=== PATIENT | female | born 1985 | race Caucasian/White ===

== ENCOUNTER 2018-04-20 16:23 | Emergency (ER) | payer BC ==
[2018-04-20 17:04] VITALS: BP 133/75
--- NOTE | 2018-04-20 17:20 | ED ---
Throat Pain/Nasal Congestion - HPI Summary HPI Summary: 32 yr old female with three days of left ear pain. She states she has had ear infections in the past and she requests Augmentin. No other complaints. No fever, chills. No other complaints. - History of Current Complaint Chief Complaint: UCEar Time Seen by Provider: 04/20/18 17:12 - Allergies/Home Medications Allergies/Adverse Reactions: Allergies Allergy/AdvReac Type Severity Reaction Status Date / Time seasonal Allergy Congestion Uncoded 04/20/18 17:07 Home Medications: Home Medications Naproxen [Naproxen 250 mg tab] 220 mg PO BID PRN 04/20/18 [History Confirmed ] PMH/Surg Hx/FS Hx/Imm Hx Endocrine/Hematology History: Reports: Hx Diabetes - pre Respiratory History: Reports: Hx Asthma - Surgical History Surgery Procedure, Year, and Place: D and C 11/2014 Infectious Disease History: No Infectious Disease History: Denies: Traveled Outside the [place] in Last 30 Days - Family History Known Family History: Positive: None - Social History Occupation: Employed Full-time Lives: With Family Alcohol Use: Rare Substance Use Type: Reports: None Smoking Status (MU): Never Smoked Tobacco Review of Systems Constitutional: Negative Positive: Ear Ache All Other Systems Reviewed And Are Negative: Yes Physical Exam Triage Information Reviewed: Yes Vital Signs On Initial Exam: Initial Vitals Temp Pulse Resp BP Pulse Ox 97.6 F 83 20 133/75 100 04/20/18 16:58 04/20/18 16:58 04/20/18 16:58 04/20/18 16:58 04/20/18 16:58 Vital Signs Reviewed: Yes Appearance: Positive: Well-Appearing, No Pain Distress Skin: Positive: Warm, Skin Color Reflects Adequate Perfusion Head/Face: Positive: Normal Head/Face Inspection Eyes: Positive: EOMI ENT: Positive: Pharynx normal, TM red - left. Negative: Sinus tenderness Neck: Positive: Supple, Nontender Respiratory/Lung Sounds: Positive: Clear to Auscultation, Breath Sounds Present Cardiovascular: Positive: RRR. Negative: Murmur Abdomen Description: Positive: Nontender Musculoskeletal: Positive: Strength/ROM Intact Neurological: Positive: Sensory/Motor Intact, Alert, Oriented to Person Place, Time, CN Intact II-III Psychiatric: Positive: Normal - Lisbeth Coma Scale Best Eye Response: 4 - Spontaneous Best Motor Response: 6 - Obeys Commands Best Verbal Response: 5 - Oriented Coma Scale Total: 15 Diagnostics - Vital Signs Vital Signs Temp Pulse Resp BP Pulse Ox 04/20/18 16:58 97.6 F 83 20 133/75 100 - Laboratory Lab Statement: Any lab studies that have been ordered have been reviewed, and results considered in the medical decision making process. EENT Course/Dx - Course Course Of Treatment: 32 yr old female with left OM. Rx with Augmentin. - Diagnoses Provider Diagnoses: Otitis media Discharge - Sign-Out/Discharge Documenting (check all that apply): Patient Departure All imaging exams completed and their final reports reviewed: No Studies - Discharge Plan Condition: Good Disposition: HOME Prescriptions: Amoxicillin/Clavulanate TAB* [Augmentin TAB 875*] 875 mg PO BID #20 tab Patient Education Materials: Ear Infection (ED) Referrals: Leonel Arana MD [Primary Care Provider] - 2 Days - Billing Disposition and Condition Condition: GOOD Disposition: Home
== END 2018-04-20 17:31 | disposition home or self-care (01) ==
LOC: UCCORT 16:23
DX: H66.92 Otitis media, unspecified, left ear (principal); E11.9 Type 2 diabetes mellitus without complications
CPT/HCPCS: 99212; G0463

== ENCOUNTER 2019-06-07 09:41 | Inpatient (IN) | payer BC ==
--- NOTE | 2019-06-07 10:46 | ED ---
Complex/Multi-Sys Presentation - HPI Summary HPI Summary: Patient is a 33 y/o pre-diabetic female who presents to [facility] with complaints of frequent urination, decreased appetite, dizziness/light-headedness. Sx onset a week ago. Patient additionally endorses frequent water consumption. She states that she has been taking metformin 500 mg daily. Patient has not been checking her blood glucose. She denies any other medical problems. Patient additionally makes note of what she believes are pruritic insect bite areas to her left leg. She also reports muscle cramps to both her legs. This Sx has been present for the past few days and are aggravated with exertion. Patient further notes that she is a week late for her menstrual cycle. She had done a home urine test that was negative. On triage, pain is rated 3/10. Home medications and allergies are reviewed. - History Of Current Complaint Chief Complaint: EDGeneral Hx Obtained From: Patient Onset/Duration: Lasting Days - muscle cramps, Lasting Weeks - frequent urination , decreased appetite, dizziness/light-headedness, Still Present Timing: Constant, Days - muscle cramps, Weeks - frequent urination, decreased appetite, dizziness/light-headedness Severity Currently: Mild Location: Pain At: - BLE Aggravating Factor(s): exertion aggravates muscle cramp pain Alleviating Factor(s): nothing Associated Signs And Symptoms: Positive: Dizziness, Other - positive - frequent urination, frequent water consumption, dizziness, light-headedness, decreased appetite, muscle cramps, possible insect bite areas to left leg - Allergies/Home Medications Allergies/Adverse Reactions: Allergies Allergy/AdvReac Type Severity Reaction Status Date / Time No Known Drug Allergies Allergy See Comment Verified 06/07/19 15:08 seasonal Allergy Congestion Uncoded 06/07/19 09:52 Home Medications: Home Medications LoraTADine TAB(NF) [Claritin 10 MG TAB(NF)] 10 mg PO DAILY PRN 06/07/19 [ History Confirmed 06/07/19] Magnesium Oxide TAB* [MagOx 400 TAB*] 400 mg PO DAILY 06/07/19 [History Confirmed 06/07/19] Naproxen Sodium [Aleve] 220 mg PO BID PRN 06/07/19 [History Confirmed 06/07/19] PMH/Surg Hx/FS Hx/Imm Hx Endocrine/Hematology History: Reports: Hx Diabetes - pre Respiratory History: Reports: Hx Asthma Sensory History: Denies: Hx Legally Blind, Hx Deafness Opthamlomology History: Denies: Hx Legally Blind EENT History: Denies: Hx Deafness - Surgical History Surgery Procedure, Year, and Place: D and C 11/2014 Infectious Disease History: No Infectious Disease History: Denies: Traveled Outside the [place] in Last 30 Days - Family History Known Family History: Negative: Diabetes - Social History Alcohol Use: Rare Substance Use Type: Reports: None Smoking Status (MU): Never Smoked Tobacco Review of Systems Gastrointestinal: Other - positive - decreased appetite, frequent water consumption Genitourinary: Other - positive - frequent urination Musculoskeletal: Other - positive - muscle cramps at BLE Skin: Other - positive - possible insect bite areas to left leg Neurological: Other - positive - dizziness, light-headedness All Other Systems Reviewed And Are Negative: Yes Physical Exam - Summary Physical Exam Summary: Appearance: The patient is morbidly obese in no acute distress and in no acute pain. Skin: Erythematous excoriated patches at the left leg. The skin is warm and dry , and skin color reflects adequate perfusion. HEENT: The head is normocephalic and atraumatic. The pupils are equal and reactive. The conjunctivae are clear and without drainage. Nares are patent and without drainage. Mouth reveals moist mucous membranes, and the throat is without erythema and exudate. The external ears are intact. The ear canals are patent and without drainage. The tympanic membranes are intact. Neck: The neck is supple with full range of motion and non-tender. There are no carotid bruits. There is no neck vein distension. Respiratory: Chest is non-tender. Lungs are clear to auscultation and breath sounds are symmetrical and equal. Cardiovascular: Heart is regular rate and rhythm. There is no murmur or rub auscultated. There is no peripheral edema and pulses are symmetrical and equal. Abdomen: The abdomen is soft and non-tender. There are normal bowel sounds heard in all four quadrants and there is no organomegaly palpated. Musculoskeletal: There is no back tenderness noted. Extremities are non-tender with full range of motion. There is good capillary refill. There is no peripheral edema or calf tenderness elicited. Neurological: Patient is alert and oriented to person, place and time. The patient has symmetrical motor strength in all four extremities. Cranial nerves are grossly intact. Deep tendon reflexes are symmetrical and equal in all four extremities. Psychiatric: The patient has an appropriate affect and does not exhibit any anxiety or depression. Triage Information Reviewed: Yes Vital Signs On Initial Exam: Initial Vitals Temp Pulse Resp BP Pulse Ox 97.4 F 111 18 149/114 98 06/07/19 09:47 06/07/19 09:47 06/07/19 09:47 06/07/19 09:47 06/07/19 09:47 Vital Signs Reviewed: Yes Procedures - Sedation Patient Received Moderate/Deep Sedation with Procedure: No Diagnostics - Vital Signs Vital Signs Temp Pulse Resp BP Pulse Ox 06/07/19 10:27 110 134/98 98 06/07/19 10:26 113 98 06/07/19 09:47 97.4 F 111 18 149/114 98 - Laboratory Result Diagrams: 06/07/19 11:59 06/07/19 18:47 Lab Statement: Any lab studies that have been ordered have been reviewed, and results considered in the medical decision making process. Re-Evaluation - Re-Evaluation First Eval Re-Evaluation Time: 13:05 Comment: Aware of carbon dioxide of 21. Complex Multi-Symp Course/Dx Course Of Treatment: Ms. Beaver was found to be a new onset of DKA. She was treated with insulin and insulin drip as well as IV crystalloids. I spoke with Dr. Rivera concerning admission. - Diagnoses Provider Diagnoses: DKA (diabetic ketoacidoses) - Physician Notifications Discussed Care Of Patient With: Sigrid Rivera Time Discussed With Above Provider: 13:32 Instructed by Provider To: Other - Patient's case was discussed with Dr. Rivera , Dr. Rivera accepts for admission - Critical Care Time Critical Care Time: 30-74 min - 30 minutes CCT Discharge ED - Sign-Out/Discharge Documenting (check all that apply): Patient Departure - admit - Discharge Plan Condition: Stable Disposition: ADMITTED TO [facility] - Billing Disposition and Condition Condition: STABLE Disposition: Admitted to [facility] - Attestation Statements Document Initiated by Scribe: Yes Documenting Scribe: JAQUAN BHARDWAJ Provider For Whom Scribe is Documenting (Include Credential): TRISTA BAILEY MD Scribe Attestation: IJAQUAN, scribed for TRISTA BAILEY MD on 06/07/19 at 1946. Scribe Documentation Reviewed: Yes Provider Attestation: The documentation as recorded by the scribe, JAQUAN BHARDWAJ accurately reflects the service I personally performed and the decisions made by me, TRISTA BAILEY MD Status of Scribe Document: Viewed
[2019-06-07 12:09] LABS: ABS Basophils 0.1 10^3/ul (0-0.2); ABS Eosinophils 0.2 10^3/ul (0-0.6); ABS Lymphocytes 3.7 10^3/ul (1.0-4.8); ABS Neutrophils 7.1 10^3/ul (1.5-7.7); Eosinophil % 1.9 %; Hematocrit 49 % (35-47); Hemoglobin 16.3 g/dL (12.0-16.0); Lymphocyte % 30.4 %; Mean Corpuscular HGB Conc 34 g/dL (31-36); Mean Corpuscular Hemoglobin 30 pg (27-31); Mean Corpuscular Volume 90 fL (80-97); Mean Platelet Volume 8.6 fL (7.4-10.4); Nucleated Red Blood Cells % 0.1; Platelet Count 349 10^3/uL (150-450); Red Blood Count 5.39 10^6 /uL (3.70-4.87); Red Cell Distribution Width 14 % (10-15); White Blood Count 12.1 10^3/uL (3.5-10.8)
[2019-06-07 12:34] LABS: HCG Pregnancy < 0.60 mIU/mL
[2019-06-07 13:00] LABS: ALT 64 U/L (7-52); AST 34 U/L (13-39); Albumin/Globulin Ratio 1.5 (1-3); Alkaline Phosphatase 121 U/L (34-104); BUN/Creatinine Ratio 12.9 (8-20); Blood Urea Nitrogen 11 mg/dL (6-24); C Reactive Protein 9.33 mg/L (<8.01); Calcium 10.8 mg/dL (8.6-10.3); Chloride 95 mmol/L (101-111); EGFR African American 93.8 (>60); EGFR Non-African American 77.5 (>60); Globulin 3.3 g/dL (2-4); Glucose 372 mg/dL (70-100); Potassium 4.5 mmol/L (3.5-5.0); Sodium 129 mmol/L (135-145); Total Protein 8.3 g/dL (6.4-8.9)
[2019-06-07 13:04] LABS: Anion Gap 20 mmol/L (2-11); CO2 Carbon Dioxide 14 mmol/L (22-32)
[2019-06-07] MEDS ORDERED: NS 0.9% 1000 ML** 1,000 ML IV ONE (13:28)
[2019-06-07] MEDS ORDERED: Insulin REGULAR(*) 1 UNITS UNIT SUBCUT ONE (13:32)
[2019-06-07] MEDS ORDERED: Insulin Infusion 100unit/100mL 100 UNITS/100 ML UNIT IV ONE (13:32)
[2019-06-07] MEDS ORDERED: Acetaminophen TAB* 325 MG PO PRN (14:29)
[2019-06-07] MEDS ORDERED: Al Hydrox/Mg Hydrox/Simet LIQ* 30 ML UDC PO PRN (14:30)
[2019-06-07] MEDS ORDERED: NS 0.9% 1000 ML** 1,000 ML IV SCH ×2 (14:30→17:15)
[2019-06-07 15:32] LABS: Urine Appearance Clear; Urine Bilirubin Negative (Negative); Urine Blood Negative (Negative); Urine Color Straw; Urine Glucose 3+(>=500 mg/dL) (Negative); Urine Ketones 2+ (Negative); Urine Nitrite Negative (Negative); Urine Protein Negative (Negative); Urine Specific Gravity 1.032 (1.010-1.030); Urine Urobilinogen Negative (Negative)
[2019-06-07 16:06] LABS: Calcium 9.5 mg/dL (8.6-10.3); EGFR African American 97.8 (>60); EGFR Non-African American 80.8 (>60); Magnesium 1.9 mg/dL (1.9-2.7); Potassium 3.4 mmol/L (3.5-5.0)
[2019-06-07] MEDS ORDERED: Sodium Chloride Conc 23.4%* 77 MEQ in D10W 1000 ML BAG* 1,000 ML IV SCH (17:00)
[2019-06-07] MEDS ORDERED: D10W 1000 ML BAG* 1,000 ML IV SCH (18:00)
[2019-06-07] MEDS: KCL 20 MEQ/100 ML IVPREMIX* 20 MEQ/100 ML BAG IV SCH ×2 (18:35→22:46)
[2019-06-07] MEDS: Cephalexin CAP* 500 MG PO SCH ×2 (18:35→22:53)
--- NOTE | 2019-06-07 19:21 | HP ---
CC: Dr. Leonel Arana; Dr. Ricardo Bal * HISTORY AND PHYSICAL: DATE OF ADMISSION: 06/07/19 TIME OF EVALUATION: 2:05 p.m. PRIMARY CARE PROVIDER: Dr. Leonel Arana. CONSULTING DECKHAND ENGINEER: Dr. Ricardo Bal. CHIEF COMPLAINT: "I am very thirsty." HISTORY OF PRESENT ILLNESS: Ms. Beaver is a 33-year-old female with a past medical history of morbid obesity, glucose intolerance, who presented to the emergency room with complaints of polydipsia. The patient states that she was diagnosed with glucose intolerance a couple of years ago and she has been on metformin 500 mg p.o. daily ever since. She stated that her last A1c at Dr. Arana's office was "okay." Over the past couple of weeks, she has noted progressive fatigue, polyuria, polydipsia, lower extremity cramps, and blurry vision. She saw the eye doctor last week and was informed that her prescription had changed. She stated that she has been drinking a lot of fluids but she feels like she is always thirsty no matter what. She has been eating a lot of bananas that she states helped with the cramps but all other symptoms persisted. She also stated that she has some "bug bites" on her left leg that has been itchy. Her endorses that she was scratching them and actually used some peroxide to clean it. She denies fever but states that she has frequent chills. There is some nausea, no vomiting, but her appetite is poor. She has lost an unknown amount of weight over the past couple of weeks. PAST MEDICAL HISTORY: 1. Morbid obesity with a BMI of 51. 2. Glucose intolerance. MEDICATION LIST: 1. Loratadine 10 mg p.o. daily as needed for allergies. 2. Magnesium oxide 400 mg p.o. daily. 3. Metformin 500 mg p.o. daily. 4. Naproxen 220 mg p.o. b.i.d. as needed for pain. ALLERGIES: No known drug allergies. FAMILY HISTORY: The patient has a strong family history of diabetes with her mother and maternal grandmother. As far as she knows, there is no history of heart disease or stroke. Her father has hypertension. SOCIAL HISTORY: The patient denies tobacco or drug use. She states that occasionally she would drink a wine cooler but this is very sporadic. Surrogate decision maker is her , Harshil Beaver, phone number is [phone]. REVIEW OF SYSTEMS: A 14-point review of systems was performed and all the pertinent negatives and positives are in the HPI. PHYSICAL EXAMINATION GENERAL: The patient is a pleasant, young, morbidly obese lady, sitting up in the ED stretcher, in no acute distress. VITAL SIGNS: Temperature 97.4, heart rate is 103, respiratory rate is 18, oxygen saturation 98% on room air, blood pressure is 125/97. HEENT: Pupils are equal. Moist mucous membranes. CHEST: Breath sounds bilaterally with no added sounds. CVS: Normal S1, S2. Regular rate and rhythm. ABDOMEN: Morbidly obese. Bowel sounds present. EXTREMITIES: The lower extremities are puffy but there is no pitting edema. The patient has multiple erythematous lesions on her left lower extremity, from her rowell all the way up to her hip with excoriation beach with no discharge. NEURO: She is alert and oriented x3. Able to move all 4 extremities. DIAGNOSTIC STUDIES/LAB DATA: The patient had a CBC that showed a WBC of 12.1, hemoglobin of 16.3, hematocrit of 49, platelets of 349 with 59% neutrophils. VBG showed a pH of 7.29, pCO2 of 37, pO2 of less than 38, bicarb was 16, oxygen saturation is 34. BMP showed a sodium of 129, potassium of 4.5, chloride of 95 , bicarb of 14, anion gap of 20, glucose of 372, lactic acid is 1.1. Calcium is 10.8. LFTs showed a total bilirubin of 0.6, AST of 34, ALT of 64, alk phos of 121, CRP of 9.3. HCG was less than 0.6. ASSESSMENT AND PLAN: Ms. Beaver is a 33-year-old morbidly obese female with a past medical history of glucose intolerance, who presents to the emergency room with a couple weeks of polyuria, polydipsia, blurry vision, found to be in diabetic ketoacidosis. 1. Diabetic ketoacidosis. The patient is probably insulin panic and insulin resistant. She will be admitted to the intensive care unit for insulin drip. She will receive IV hydration. We will adjust her insulin drip as needed by her fingersticks and we will monitor and replete her electrolytes. Endocrinology consultation will be requested with Dr. Ricardo Bal. I will check a hemoglobin A1c. The patient will receive diabetic education including how to check her fingersticks. 2. Morbid obesity. The patient will benefit of evaluation at [facility] on discharge. 3. DVT prophylaxis. The patient has a score of 2 on a DVT Prophylaxis Risk Assessment Guide and she will be started on subcutaneous heparin. 4. Code status is full. TIME SPENT: Approximately 60 minutes was spent with patient and interview, medical records review, physical examination to complete this admission, more than half this time was spent [id number] with the patient and coordination of care. [id number]/[facility] #: [id number] STAN
[2019-06-07 19:24] LABS: BUN/Creatinine Ratio 11.7 (8-20); Calcium 9.4 mg/dL (8.6-10.3); EGFR African American 105.1 (>60); EGFR Non-African American 86.9 (>60); Magnesium 1.9 mg/dL (1.9-2.7); Phosphorus 2.1 mg/dL (2.5-5.0); Potassium 3.4 mmol/L (3.5-5.0)
[2019-06-07] MEDS ORDERED: Potassium Phosphate IV* 15 MMOLE in NS 0.9% 250 ML* 250 ML IVPB ONE (20:20)
[2019-06-07] MEDS ORDERED: Potassium Chlor TAB* 20 MEQ TAB.ER PO ONE (21:00)
[2019-06-07] MEDS ORDERED: Insulin GLARGINE(*) 1 UNITS UNIT SUBCUT SCH (21:00)
[2019-06-07] MEDS ORDERED: Potassium Phosphate IV* 10 MMOLE in NS 0.9% 250 ML* 250 ML IVPB ONE (21:00)
[2019-06-07] MEDS ORDERED: Dextrose 50% VIAL 50 ml IV PUSH PRN (21:00)
[2019-06-07] MEDS ORDERED: NS 0.9% 250 ML* 250 ML ONE (21:29)
[2019-06-07] MEDS: Heparin VIAL(*) 5000 UNITS/ML VIAL (FIVE THOUSAND) SUBCUT SCH (22:49)
[2019-06-07] MEDS: Hydrocortisone 1% CREAM* 30 GM TUBE TOPICAL SCH (22:53)
[2019-06-07] MEDS: Insulin LISPRO* 1 UNITS UNIT SUBCUT SCH (23:14)
[2019-06-08 00:13] LABS: BUN/Creatinine Ratio 16.2 (8-20); Calcium 8.9 mg/dL (8.6-10.3); EGFR African American 121.3 (>60); EGFR Non-African American 100.3 (>60); Magnesium 1.8 mg/dL (1.9-2.7); Phosphorus 2.7 mg/dL (2.5-5.0); Potassium 3.9 mmol/L (3.5-5.0)
[2019-06-08] MEDS: Insulin Infusion 100unit/100mL 100 UNITS/100 ML UNIT IV SCH ×2 (02:36→03:34)
[2019-06-08 04:01] LABS: BUN/Creatinine Ratio 16.7 (8-20); Calcium 8.7 mg/dL (8.6-10.3); EGFR African American 140.2 (>60); EGFR Non-African American 115.9 (>60); Magnesium 1.8 mg/dL (1.9-2.7); Potassium 3.6 mmol/L (3.5-5.0)
[2019-06-08] MEDS: Heparin VIAL(*) 5000 UNITS/ML VIAL (FIVE THOUSAND) SUBCUT SCH ×3 (06:08→21:14)
[2019-06-08 06:28] LABS: ABS Eosinophils 0.3 10^3/ul (0-0.6); ABS Lymphocytes 3.1 10^3/ul (1.0-4.8); ABS Monocytes 0.9 10^3/ul (0-0.8); ABS Neutrophils 3.1 10^3/ul (1.5-7.7); Eosinophil % 4.3 %; Hematocrit 40 % (35-47); Hemoglobin 13.8 g/dL (12.0-16.0); Lymphocyte % 41.4 %; Mean Corpuscular HGB Conc 34 g/dL (31-36); Mean Corpuscular Hemoglobin 30 pg (27-31); Mean Corpuscular Volume 88 fL (80-97); Mean Platelet Volume 8.2 fL (7.4-10.4); Platelet Count 278 10^3/uL (150-450); Red Blood Count 4.54 10^6 /uL (3.70-4.87); Red Cell Distribution Width 13 % (10-15); White Blood Count 7.4 10^3/uL (3.5-10.8)
[2019-06-08 06:43] LABS: BUN/Creatinine Ratio 13.8 (8-20); Calcium 8.7 mg/dL (8.6-10.3); EGFR African American 127.8 (>60); EGFR Non-African American 105.6 (>60); Magnesium 1.8 mg/dL (1.9-2.7); Phosphorus 2.8 mg/dL (2.5-5.0); Potassium 4.1 mmol/L (3.5-5.0)
--- NOTE | 2019-06-08 06:50 | CONSULT ---
Consult Consult: [facility] Inpatient Consult Note Date of Consult: 06/08/19 Reason for Consult: ketosis-prone diabetes mellitus Reason for Admission: DKA ASSESSMENT: 33 yo F with history of severe obesity, PCOS and impaired glucose tolerance, now presenting with diabetic ketoacidosis. Anion gap is now closed and metabolic acidosis is resolving with IVF + insulin drip. 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 Her weight-based insulin requirement is at least 0.5 unit/kg/day, which should be given as a 4- shot basal bolus insulin regimen in the short term. PLAN: - check GAD65 antibody, C-peptide, lipid panel (done) - change Lantus (glargine) to 20 units BID (first dose this AM) - start Humalog (lispro) 10 units with meals, plus sliding scale - floor nurses to teach insulin administration and glucose monitoring - CDE consult this admission (Leslie Sultana, done) SUBJECTIVE: History of Present Illness: 33 yo F with history of severe obesity, PCOS and pre -diabetes, now presenting with symptomatic hyperglycemia and ketoacidosis. See admission note for details. Briefly, she has long history of severe obesity and impaired fasting glucose, for which metformin has been recommended. In the past several weeks, she has noted increasing polyuria, polydipsia, polyphagia, poor wound healing, nausea and weight loss. No history of socorro diabetes up to this point, A1c was 5.8% in 2017 and "okay" more recently. There is a strong family history of diabetes. No antecedent illnesses. Past Medical History: - BMI >50 - Prediabetes - PCOS Medications Prior to Admission: metFORMIN* [Glucophage*] 500 mg PO DAILY 10/09/15 [History Confirmed 06/07/19] LoraTADine TAB(NF) [Claritin 10 MG TAB(NF)] 10 mg PO DAILY PRN 06/07/19 [ History Confirmed 06/07/19] Magnesium Oxide TAB* [MagOx 400 TAB*] 400 mg PO DAILY 06/07/19 [History Confirmed 06/07/19] Naproxen Sodium [Aleve] 220 mg PO BID PRN 06/07/19 [History Confirmed 06/07/19] Inpatient Medications: Acetaminophen (Tylenol Tab*) 650 mg PO Q6H PRN PRN Reason: MILD PAIN or TEMP > 100.4 Al Hydrox/Mg Hydrox/Simethicone (Maalox Plus*) 30 ml PO Q4H PRN PRN Reason: INDIGESTION Cephalexin HCl (Keflex Cap*) 500 mg PO QID [facility] Last Admin: 06/07/19 22:53 Dose: 500 mg Dextrose (Dextrose 50% Vial 50 Ml*) 25 ml IV PUSH .FOR FS < 60 - SS PRN PRN Reason: FS < 60 Heparin Sodium (Porcine) (Heparin Vial(*)) 5,000 units SUBCUT Q8HR [facility] Last Admin: 06/08/19 06:08 Dose: 5,000 units Hydrocortisone (Hytone Cream 1%*) 1 applic TOPICAL TID [facility] Last Admin: 06/07/19 22:53 Dose: 1 applic Sodium Chloride (Ns 0.9% 1000 Ml) 1,000 mls @ 100 mls/hr IV PER RATE [facility] Insulin Glargine (Lantus(*)) 30 units SUBCUT Q24H [facility] Last Admin: 06/07/19 22:48 Dose: 30 units Insulin Human Lispro (Humalog*) 0 units SUBCUT ACHS [facility]; Protocol Last Admin: 06/07/19 23:14 Dose: Not Given Allergies/Intolerances: NKDA Social History: No significant alcohol, tobacco or drug use. Lives with . Family History: DM2 in M, MGM. Father with hypertension. Review of Systems: As above. 12 system review is otherwise negative. OBJECTIVE: Temp Pulse Resp BP Pulse Ox 96.8 F 87 24 135/86 100 06/08/19 03:42 06/08/19 05:01 06/08/19 05:01 06/08/19 05:01 06/08/19 05:01 General: alert, pleasant, oriented, no distress ENT: neck supple, no thyromegaly, no bruit is heard Chest: CTAB, no wheezing or crackles CV: RRR, no murmur Abdomen: soft, non-tender Extremities: no edema, distal pulses intact Skin: warm, dry, no rash Neuro: grossly intact motor/sensory in extremities Psych: restricted affect, pleasant Labs: WBC 7.4 10^3/uL (3.5-10.8) 06/08/19 06:16 RBC 4.54 10^6 /uL (3.70-4.87) 06/08/19 06:16 Hgb 13.8 g/dL (12.0-16.0) 06/08/19 06:16 Hct 40 % (35-47) 06/08/19 06:16 MCV 88 fL (80-97) 06/08/19 06:16 MCH 30 pg (27-31) 06/08/19 06:16 MCHC 34 g/dL (31-36) 06/08/19 06:16 RDW 13 % (10-15) 06/08/19 06:16 Plt Count 278 10^3/uL (150-450) 06/08/19 06:16 MPV 8.2 fL (7.4-10.4) 06/08/19 06:16 Neut % (Auto) 41.2 % 06/08/19 06:16 Lymph % (Auto) 41.4 % 06/08/19 06:16 Rosebud % (Auto) 12.6 % 06/08/19 06:16 Eos % (Auto) 4.3 % 06/08/19 06:16 Baso % (Auto) 0.5 % 06/08/19 06:16 Absolute Neuts (auto) 3.1 10^3/ul (1.5-7.7) 06/08/19 06:16 Absolute Lymphs (auto) 3.1 10^3/ul (1.0-4.8) 06/08/19 06:16 Absolute Monos (auto) 0.9 10^3/ul (0-0.8) H 06/08/19 06:16 Absolute Eos (auto) 0.3 10^3/ul (0-0.6) 06/08/19 06:16 Absolute Basos (auto) 0.0 10^3/ul (0-0.2) 06/08/19 06:16 Absolute Nucleated RBC 0.0 10^3/ul 06/08/19 06:16 Nucleated RBC % 0.0 06/08/19 06:16 VBG pH 7.29 (7.32-7.43) L 06/07/19 12:30 VBG pCO2 37 mmHg (41-51) L 06/07/19 12:30 VBG pO2 < 38.0 mmHg (35-45) 06/07/19 12:30 VBG HCO3 16.9 mmol/L (24-28) L 06/07/19 12:30 VBG O2 Saturation 34.3 % (70-80) L 06/07/19 12:30 VBG Base Excess -8.1 mmol/L (0.0-4.0) L 06/07/19 12:30 Sodium 133 mmol/L (135-145) L 06/08/19 06:16 Potassium 4.1 mmol/L (3.5-5.0) 06/08/19 06:16 Chloride 105 mmol/L (101-111) 06/08/19 06:16 Carbon Dioxide 19 mmol/L (22-32) L 06/08/19 06:16 Anion Gap 9 mmol/L (2-11) 06/08/19 06:16 BUN 9 mg/dL (6-24) 06/08/19 06:16 Creatinine 0.65 mg/dL (0.51-0.95) 06/08/19 06:16 Est GFR ( Amer) 127.8 (>60) 06/08/19 06:16 Est GFR (Non-Af Amer) 105.6 (>60) 06/08/19 06:16 BUN/Creatinine Ratio 13.8 (8-20) 06/08/19 06:16 Glucose 253 mg/dL (70-100) H 06/08/19 06:16 POC Glucose (mg/dL) 201 mg/dL (70-100) H 06/08/19 04:21 Lactic Acid 1.1 mmol/L (0.5-2.0) 06/07/19 11:59 Calcium 8.7 mg/dL (8.6-10.3) 06/08/19 06:16 Phosphorus 2.8 mg/dL (2.5-5.0) 06/08/19 06:16 Magnesium 1.8 mg/dL (1.9-2.7) L 06/08/19 06:16 Total Bilirubin 0.60 mg/dL (0.2-1.0) 06/07/19 11:59 AST 34 U/L (13-39) 06/07/19 11:59 ALT 64 U/L (7-52) H 06/07/19 11:59 Alkaline Phosphatase 121 U/L (34-104) H 06/07/19 11:59 C-Reactive Protein 9.33 mg/L (<8.01) H 06/07/19 11:59 Total Protein 8.3 g/dL (6.4-8.9) 06/07/19 11:59 Albumin 5.0 g/dL (3.2-5.2) 06/07/19 11:59 Globulin 3.3 g/dL (2-4) 06/07/19 11:59 Albumin/Globulin Ratio 1.5 (1-3) 06/07/19 11:59 Beta HCG, Quant < 0.60 mIU/mL 06/07/19 11:59 Urine Color Straw 06/07/19 12:01 Urine Appearance Clear 06/07/19 12:01 Urine pH 5.0 (5-9) 06/07/19 12:01 Ur Specific [place] 1.032 (1.010-1.030) H 06/07/19 12:01 Urine Protein Negative (Negative) 06/07/19 12:01 Urine Ketones 2+ (Negative) A 06/07/19 12:01 Urine Blood Negative (Negative) 06/07/19 12:01 Urine Nitrate Negative (Negative) 06/07/19 12:01 Urine Bilirubin Negative (Negative) 06/07/19 12:01 Urine Urobilinogen Negative (Negative) 06/07/19 12:01 Ur Leukocyte Esterase Negative (Negative) 06/07/19 12:01 Urine Glucose 3+(>=500 mg/dl) (Negative) A 06/07/19 12:01
[2019-06-08] MEDS ORDERED: Magnesium Sulfate 2 GM IV* 2 G/50 ML BAG IVPB ONE (07:19)
[2019-06-08] MEDS ORDERED: Magnesium Sulfate 2 GM IV* 2 GM/50 ML BAG IVPB ONE (07:28)
[2019-06-08] MEDS: Insulin LISPRO* 1 UNITS UNIT SUBCUT SCH ×7 (08:07→21:12)
[2019-06-08] MEDS: Insulin GLARGINE(*) 1 UNITS UNIT SUBCUT SCH ×3 (08:08→21:13)
--- NOTE | 2019-06-08 08:23 | PN ---
Subjective Date of Service: 06/08/19 Interval History: HOSPITALIST PROGRESS NOTE Patient seen and examined at bedside. Care reviewed and d/w Floridalma Morrow RN. She feels better today. Polyuria, polydipsia much improved. Appetite has returned. Family History: Unchanged from Admission Social History: Unchanged from Admission Past Medical History: Unchanged from Admission Objective Active Medications: Acetaminophen (Tylenol Tab*) 650 mg PO Q6H PRN PRN Reason: MILD PAIN or TEMP > 100.4 Al Hydrox/Mg Hydrox/Simethicone (Maalox Plus*) 30 ml PO Q4H PRN PRN Reason: INDIGESTION Cephalexin HCl (Keflex Cap*) 500 mg PO QID [facility] Last Admin: 06/07/19 22:53 Dose: 500 mg Dextrose (Dextrose 50% Vial 50 Ml*) 25 ml IV PUSH .FOR FS < 60 - SS PRN PRN Reason: FS < 60 Heparin Sodium (Porcine) (Heparin Vial(*)) 5,000 units SUBCUT Q8HR [facility] Last Admin: 06/08/19 06:08 Dose: 5,000 units Hydrocortisone (Hytone Cream 1%*) 1 applic TOPICAL TID [facility] Last Admin: 06/07/19 22:53 Dose: 1 applic Sodium Chloride (Ns 0.9% 1000 Ml) 1,000 mls @ 100 mls/hr IV PER RATE [facility] Insulin Glargine (Lantus(*)) 20 units SUBCUT BID [facility] Last Admin: 06/08/19 08:08 Dose: 20 units Insulin Human Lispro (Humalog*) 0 units SUBCUT ACHS [facility]; Protocol Last Admin: 06/08/19 08:07 Dose: 9 units Insulin Human Lispro (Humalog*) 10 units SUBCUT AC [facility] Last Admin: 06/08/19 08:08 Dose: 10 units Vital Signs - 8 hr 06/08/19 06/08/19 06/08/19 01:00 02:00 02:01 Temperature Pulse Rate 88 89 89 Respiratory 16 16 Rate Blood Pressure 132/99 115/61 (mmHg) O2 Sat by Pulse 97 95 98 Oximetry 06/08/19 06/08/19 06/08/19 03:00 03:42 04:21 Temperature 96.8 F Pulse Rate 89 108 Respiratory 16 16 Rate Blood Pressure 116/81 (mmHg) O2 Sat by Pulse 97 95 Oximetry 06/08/19 06/08/19 06/08/19 04:28 05:00 05:01 Temperature Pulse Rate 91 92 87 Respiratory 21 18 24 Rate Blood Pressure 140/92 135/86 (mmHg) O2 Sat by Pulse 98 100 100 Oximetry 06/08/19 06/08/19 06/08/19 06:00 07:00 07:01 Temperature Pulse Rate 90 84 89 Respiratory 21 27 15 Rate Blood Pressure 144/76 102/77 (mmHg) O2 Sat by Pulse 99 99 100 Oximetry 06/08/19 07:26 Temperature 98.1 F Pulse Rate Respiratory Rate Blood Pressure (mmHg) O2 Sat by Pulse Oximetry Oxygen Devices in Use Now: None Appearance: Pleasant morbid obese lady sitting up in bed in NAD Eyes: No Scleral Icterus Ears/Nose/Mouth/Throat: Mucous Membranes Moist Neck: Trachea Midline Respiratory: Symmetrical Chest Expansion and Respiratory Effort, Clear to Auscultation Cardiovascular: NL Sounds; No Murmurs; No JVD, RRR Abdominal: NL Sounds; No Tenderness; No Distention - morbid obese Extremities: No Edema Skin: - - multiple erythematous lesions to LLE, no drainage Neurological: Alert and Oriented x 3, NL Muscle Strength and Tone Result Diagrams: 06/08/19 06:16 06/08/19 08:17 Microbiology and Other Data: Microbiology 06/07/19 15:22 Nasal Screen MRSA (PCR) - Final Nasal Mrsa Not Detected Assess/Plan/Problems-Billing Assessment: Mrs Beaver is a 33yo F with PMH of morbid obesity with BMI 51, glucose intolerance, PCOS, who presented to ED with c/o polyuria, polydipsia, polyphagia , found to have new onset diabetes with DKA. - Patient Problems (1) DKA (diabetic ketoacidoses) Comment: - DKA resolved overnight. - Endocrinology input appreciated - plan for Lantus 20 units BID with Lispro 10 units AC plus sliding scale. - Transfer to medical floor. - Diabetes education. (2) Morbid obesity Comment: - Referral to [facility] as outpatient. (3) DVT prophylaxis Comment: - SQ heparin. (4) Full code status Status and Disposition: Inpatient. Transfer to Medical floor.
[2019-06-08 08:57] LABS: Calcium 8.6 mg/dL (8.6-10.3); Potassium 4.3 mmol/L (3.5-5.0)
[2019-06-08 09:03] LABS: BUN/Creatinine Ratio 14.3 (8-20); EGFR African American 132.5 (>60); EGFR Non-African American 109.5 (>60); HDL Cholesterol 33.1 mg/dL
[2019-06-08] MEDS: Cephalexin CAP* 500 MG PO SCH ×4 (09:08→21:12)
[2019-06-08] MEDS: Hydrocortisone 1% CREAM* 30 GM TUBE TOPICAL SCH ×3 (09:08→22:36)
[2019-06-08] MEDS ORDERED: Senna TAB 8.6 mg* TAB PO PRN (13:54)
[2019-06-09] MEDS: Heparin VIAL(*) 5000 UNITS/ML VIAL (FIVE THOUSAND) SUBCUT SCH ×2 (06:09→14:11)
[2019-06-09] MEDS: Insulin LISPRO* 1 UNITS UNIT SUBCUT SCH ×4 (09:03→13:01)
[2019-06-09] MEDS: Insulin GLARGINE(*) 1 UNITS UNIT SUBCUT SCH (09:28)
[2019-06-09] MEDS: Cephalexin CAP* 500 MG PO SCH ×2 (09:29→13:53)
[2019-06-09] MEDS: Hydrocortisone 1% CREAM* 30 GM TUBE TOPICAL SCH ×2 (09:30→12:01)
[2019-06-09 11:34] VITALS: BP 127/80
--- NOTE | 2019-06-09 21:32 | DS ---
CC: Dr. Arana; Dr. Ricardo Bal * DISCHARGE SUMMARY: DATE OF ADMISSION: 06/07/19 DATE OF DISCHARGE: 06/09/19 PRIMARY CARE PROVIDER: Dr. Arana. CONSULTING SNATH HANDLE ASSEMBLER: Ricardo Bal MD DISCHARGE DIAGNOSIS: Diabetic ketoacidosis. SECONDARY DIAGNOSES: 1. Morbid obesity with a BMI of 51. 2. Polycystic ovary syndrome. MEDICATION LIST: 1. Naproxen 220 mg p.o. b.i.d. as needed for pain. 2. Magnesium oxide 400 mg p.o. daily. 3. Loratadine 10 mg p.o. daily as needed for allergies. New Medications: 1. Insulin glargine 20 units subcutaneously b.i.d. 2. Lispro 10 units subcutaneously before meals with sliding scale as follows: Glucose 131 to 150, 2 units; 151 to 200, 3 units; 201 to 250, 6 units; 251 to 300, 9 units; 301 to 350, 12 units; 351 to 400, 15 units; greater than 400, 18 units and call PCP. 3. Keflex 500 mg p.o. 4 times a day for 5 more days. 4. Hydrocortisone 1% cream, topical t.i.d. to left lower extremity lesion. HOSPITAL COURSE: Mrs. Beaver is a 33-year-old female with a past medical history as stated above that presented to the emergency room with complaints of polydipsia, polyuria, polyphagia, lower extremity cramps, blurry vision. Her workup in the emergency room was compatible with DKA with a glucose of 372 with bicarb of 14, anion gap of 20. She was admitted to the intensive care unit on insulin drip and was later on transitioned to subcutaneous insulin. Hemoglobin A1c was 11.1. The patient was seen in consultation by Endocrinology (Dr. Bal) and his assessment was the patient is a 33-year-old female with a history of severe obesity, PCOS, and impaired glucose tolerance, now presenting with diabetic ketoacidosis. At the time of his evaluation, the gap was closed and metabolic acidosis was resolving with IV fluids, his insulin drip. The diagnosis of ketosis prone type 2 diabetes is likely in this case, but other causes of ketone prone diabetes should be excluded with labs, so anti-GAD65, C-peptide were ordered and pending at the time of this evaluation. Insulin regimen was ordered per his recommendation and she was also seen by Leslie Sultana, Clinical Health Education Coordinator and the patient felt confident that she would be able to manage at home. She received dietary education. Education on how to check her glucose and how to prepare and inject her insulin. On the day of discharge, the patient felt much improved. Her sugar was still in the 200s, but otherwise she was feeling well and was felt to be medically stable for discharge. The patient also had some erythematous lesions on her legs that she attributed to bug bite. There was no purulence, but some erythema, so the patient is receiving cephalexin p.o. and she will receive hydrocortisone topically. The patient is medically stable to be discharged home today to continue her diabetes management at home with followup with her primary care provider and with Dr. Bal. PHYSICAL EXAMINATION: Vital Signs: Temperature 98.4, heart rate is 93, respiratory rate is 20, oxygen saturation is 100% on room air, blood pressure is 127/80. General: The patient is a pleasant young morbidly obese lady sitting up in bed, in no acute distress. CVS: Normal S1, S2. Regular rate and rhythm. Chest: Breath sounds bilaterally, with no added sounds. Abdomen: Obese, bowel sounds present. Extremities: No edema. Erythematous lesions on left leg are less pronounced than on admission. Neuro: She is alert and oriented x3. Able to move all 4 extremities. DIET: Consistent carb diet. ACTIVITY: As tolerated. DISPOSITION: To home. STATUS WHILE IN THE HOSPITAL: Inpatient. CONDITION AT THE TIME OF DISCHARGE: Fair. Please keep in mind this is a summarized version of the patient's hospital stay. If you need more information, please feel free to call me at [phone] or please obtain the full medical records. TIME SPENT: Approximately 55 minutes was spent to complete this discharge. [id number]/[facility] #: [id number] STAN
== END 2019-06-09 15:57 | disposition home or self-care (01) | DRG 420 ==
LOC: ED 09:41 → ICU 14:05 → MED 06-08 07:23
PROVIDERS: ADMIT Internal Medicine; ATTEND Internal Medicine
DX: E11.10 Type 2 diabetes mellitus with ketoacidosis without coma (principal); Z68.43 Body mass index [BMI] 50.0-59.9, adult; E28.2 Polycystic ovarian syndrome; E66.01 Morbid (severe) obesity due to excess calories; J45.909 Unspecified asthma, uncomplicated; R25.2 Cramp and spasm; L53.9 Erythematous condition, unspecified; Z79.4 Long term (current) use of insulin
CPT/HCPCS: 36415; 80048; 80053; 80061; 81003; 82803; 83036; 83605; 83735; 84100; 84681; 84702; 85025; 86140; 86341; 87641; 93005; 99285; A9270-GY; J1644; J1815; J3475; J3480

== ENCOUNTER 2019-09-28 17:26 | Emergency (ER) | payer BC ==
[2019-09-28 18:27] VITALS: BP 133/79
--- NOTE | 2019-09-28 18:29 | UC ---
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 Friday + fever, cough, achy, h/a, runny nose, sore throat st better now + n/v x 2 days no rash no sob, but + fatigue blood sugars have been apprx 100's - 200's last couple days at home - History of Current Complaint Chief Complaint: UCGeneralIllness Stated Complaint: VOMITING, HEADACHE, COUGH Time Seen by Provider: 09/28/19 18:27 Hx Obtained From: Patient Hx Last Menstrual Period: 09/02/19 Pain Intensity: 0 - Allergy/Home Medications Allergies/Adverse Reactions: Allergies Allergy/AdvReac Type Severity Reaction Status Date / Time No Known Drug Allergies Allergy See Comment Verified 09/28/19 18:20 seasonal Allergy Congestion Uncoded 09/28/19 18:20 Home Medications: Home Medications LoraTADine TAB(NF) [Claritin 10 MG TAB(NF)] 10 mg PO DAILY PRN 06/07/19 [ History Confirmed 09/28/19] Magnesium Oxide TAB* [MagOx 400 TAB*] 400 mg PO DAILY 06/07/19 [History Confirmed 09/28/19] Metformin ER (NF) [Glucophage ER 750 MG TAB (NF)] 750 mg PO BID 09/28/19 [ History Confirmed 09/28/19] Ondansetron ODT TAB* [Zofran 4 MG Odt TAB*] 4 mg PO Q6H PRN #15 tab.odt [Rx] Oseltamivir CAP* [Tamiflu CAP*] 75 mg PO BID 5 Days #10 cap 09/28/19 [Rx] Pioglitazone TAB* [Actos TAB*] 15 mg PO DAILY 09/28/19 [History Confirmed ] glipiZIDE [Glipizide Xl] 10 mg PO DAILY 09/28/19 [History Confirmed 09/28/19] PMH/Surg Hx/FS Hx/Imm Hx Previously Healthy: Yes Endocrine History: Diabetes - Surgical History Surgical History: Yes Surgery Procedure, Year, and Place: D&C 11/2014 - Family History Known Family History: Positive: None Negative: Diabetes - Social History Alcohol Use: Rare Substance Use Type: None Smoking Status (MU): Never Smoked Tobacco - Immunization History Most Recent Influenza Vaccination: 05/2019 Most Recent Pneumonia Vaccination: 2017 Review of Systems All Other Systems Reviewed And Are Negative: Yes Constitutional: Positive: Fatigue Skin: Positive: Negative Eyes: Positive: Other - eyes watery ENT: Positive: Sore Throat, Nasal Discharge Respiratory: Positive: Cough Cardiovascular: Positive: Negative Gastrointestinal: Positive: Vomiting, Nausea Genitourinary: Positive: Negative Motor: Positive: Other - see hpi Neurovascular: Positive: Negative Musculoskeletal: Positive: Other: Neurological/Mental Status: Positive: Headache Psychological: Positive: Negative - does not describe as wol Is Patient Immunocompromised?: No Physical Exam Triage Information Reviewed: Yes Appearance: Well-Nourished - sitting up, conversing easily. looks tired, but nontoxic general appearance Vital Signs: Initial Vital Signs Temp 97.4 F 09/28/19 18:23 Pulse 86 09/28/19 18:23 Resp 15 09/28/19 18:23 BP 133/79 09/28/19 18:23 Pulse Ox 100 09/28/19 18:23 Eye Exam: Other - eyes watery, but nad ENT: Positive: Pharyngeal erythema - no sores / exudates, uvula midline, Nasal drainage - + coryza, TM dull Neck exam: Normal Neck: Positive: Supple, Nontender, No Lymphadenopathy Respiratory Exam: Other - + cough, minimally productive bs equal, full no distress Respiratory: Positive: No respiratory distress, No accessory muscle use Cardiovascular Exam: Normal Cardiovascular: Positive: RRR, Pulses Normal, Brisk Capillary Refill Abdominal Exam: Other - + n/v + nabs no direct cvat, but + achy all over Abdomen Description: Positive: Nontender Musculoskeletal Exam: Normal Neurological Exam: Normal - grossly nonfocal Psychological Exam: Normal - nad Skin Exam: Normal - nondiaphoretic no visible or reported rash Course/Dx - Course Course Of Treatment: influenza A + Blood glucose FS Reviewed coa / tx plan. Questions as posed answered to the best of my ability. - Diagnoses Provider Diagnosis: Influenza A Discharge ED - Sign-Out/Discharge Documenting (check all that apply): Patient Departure All imaging exams completed and their final reports reviewed: No Studies - Discharge Plan Condition: Stable Disposition: HOME Prescriptions: Ondansetron ODT TAB* [Zofran 4 MG Odt TAB*] 4 mg PO Q6H PRN #15 tab.odt PRN Reason: Nausea Oseltamivir CAP* [Tamiflu CAP*] 75 mg PO BID 5 Days #10 cap Patient Education Materials: Influenza (ED) Forms: *Work Release Referrals: Leonel Arana MD [Primary Care Provider] - - Billing Disposition and Condition Condition: STABLE Disposition: Home
[2019-09-28 18:45] LABS: Influenza A Molecular POSITIVE (Negative)
[2019-09-28] MEDS ORDERED: Ondansetron ODT TAB* 4 MG PO ONE (18:55)
== END 2019-09-28 19:28 | disposition home or self-care (01) ==
LOC: UCCORT 17:26
DX: J10.1 Influenza due to other identified influenza virus with other respiratory manifestations (principal); E11.9 Type 2 diabetes mellitus without complications; Z79.84 Long term (current) use of oral hypoglycemic drugs; Z91.09 Other allergy status, other than to drugs and biological substances
CPT/HCPCS: 99212; A9270-GY; G0463